=== PATIENT | female | born 1965 | race Two or more races ===

== ENCOUNTER → 2017-02-19 18:45 | Outpatient (CLI) | payer BC | END | disposition home or self-care (01) | LOC: D.MAMMO 13:30 | DX: Z12.31 Encounter for screening mammogram for malignant neoplasm of breast (principal) ==

== ENCOUNTER → 2018-02-19 16:12 | Outpatient (CLI) | payer MEDICARE | END | disposition home or self-care (01) | LOC: D.MAMMO 13:30 | DX: Z12.31 Encounter for screening mammogram for malignant neoplasm of breast (principal) ==

== ENCOUNTER 2019-02-26 12:30 | Outpatient (CLI) | payer MEDICARE | END 2019-02-26 13:00 | disposition home or self-care (01) | LOC: D.MAMMO 12:30 | PROVIDERS: ATTEND Emergency Medicine | DX: Z13.21 Encounter for screening for nutritional disorder (principal) ==

== ENCOUNTER 2020-02-23 10:00 | Outpatient (CLI) | payer MEDICARE | END 2020-02-23 11:15 | disposition home or self-care (01) | LOC: D.MAMMO 10:00 | PROVIDERS: ATTEND Emergency Medicine | DX: Z12.31 Encounter for screening mammogram for malignant neoplasm of breast (principal) ==